=== PATIENT | male | born 1980 | race Two or more races ===

== ENCOUNTER → 2023-12-30 | Outpatient (CLI) | payer MEDICAID, SELFPAY ==
--- NOTE | 2023-12-30 | XR_ITS ---
Examination: Lumbar spine, 5 views Technique: Lumbar spine AP, lateral, coned lateral lower lumbar spine, bilateral obliques 5 views Exam date and time: December 30, 2023 1356 hours INDICATIONS: Lower back pain radiating to left hip beginning 3 years ago. FINDINGS: Adequate alignment lumbar vertebral bodies Moderate to advanced degenerative disc disease L5-S1 with anterior osteophyte formation Suspicious for L5-S1 spondylolysis No lumbar fracture Moderate lumbar spondylosis IMPRESSION: Moderate to advanced degenerative disc disease L5-S1
--- NOTE | 2023-12-30 | XR_ITS ---
Examination:Left hip AP, lateral, AP pelvis 3 views Technique: Hip AP lateral, AP pelvis, 3 views Exam date and time:December 30, 2023 at 1356 hours INDICATIONS: Left lower back and left hip pain beginning 3 years ago. FINDINGS: Mild to moderate bilateral hip osteoarthritis No fracture or hip dislocation Bones of the pelvis intact IMPRESSION: Mild to moderate bilateral hip osteoarthritis.
== END | disposition home or self-care (01) ==
LOC: CDIM 12:05
PROVIDERS: PCP Nurse Practitioner Family; Referring Provider Nurse Practitioner Family; Visit Provider Nurse Practitioner Family
DX: M51.379 Other intervertebral disc degeneration, lumbosacral region without mention of lumbar back pain or lower extremity pain (principal); M16.0 Bilateral primary osteoarthritis of hip
CPT/HCPCS: 72110; 73502